=== PATIENT | female | born 1995 | race Caucasian/White ===

== ENCOUNTER 2020-07-16 13:44 | Emergency (ER) | payer SELFPAY ==
[~2020-07-16] VITALS: Ht 170.2 cm; Wt 68.0 kg
[2020-07-16 13:57] VITALS: BP 136/88
--- NOTE | 2020-07-16 14:02 | NUR ---
25 YEAR OLD COMPLAINS OF NEEDLESTICK INJURY X 3 HOURS AGO. 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 PT STATES SHE WASHED SITE ALOT AFTER INJURY. PT AOX4, BREATHING EVEN AND UNLABORED, SKIN WARM AND DRY. BED IN LOWEST POSITION, LOCKED, BED RAIL UPX1. PMH - GERD, IBS, MIGRAINE, LEIDEN FACTOR 5 ALLERGIES - TRILEPTAL
--- NOTE | 2020-07-16 14:43 | NUR ---
Patient discharged with v/s stable. Written and verbal after care instructions about needlestick and sharps injury given and explained. Patient verbalized understanding. Ambulatory with steady gait. All questions addressed prior to discharge. Advised to follow up with PMD.
[2020-07-16 14:47] VITALS: BP 136/88
[2020-07-17 08:08] LABS: HEPATITIS B SURFACE ANTIGEN Negative (Negative)
== END 2020-07-16 14:43 | disposition home or self-care (01) ==
LOC: MED 13:44
DX: S60.457A Superficial foreign body of left little finger, initial encounter (principal); K21.9 Gastro-esophageal reflux disease without esophagitis; G43.909 Migraine, unspecified, not intractable, without status migrainosus; W46.1XXA Contact with contaminated hypodermic needle, initial encounter; Y93.89 Activity, other specified; Y92.89 Other specified places as the place of occurrence of the external cause; Y99.8 Other external cause status
CPT/HCPCS: 36415; 86592; 86702; 86803; 87340; 99283